=== PATIENT | female | born 1965 | race Caucasian/White ===

== ENCOUNTER 2018-04-29 06:12 | Day surgery (SDC) | payer BC, OTHER ==
[~2018-04-29 06:12] MED LIST: Lactated Ringers 1,000 ML IV SCH
[2018-04-29] MEDS ORDERED: DIPRIVAN 200 MG/20 ML IV ONE (06:13)
[2018-04-29] MEDS ORDERED: Ketamine HCl 50 MG/ML IJ ONE (06:13)
[2018-04-29] MEDS ORDERED: Lactated Ringers 1,000 ML IV ONE (08:13)
[2018-04-29 10:10] VITALS: O2SAT 100
[2018-04-29 10:14] VITALS: BP 132/77; PULSE 51
--- NOTE | 2018-04-29 10:25 | OP ---
SURGERY DATE: 04/29/18 SURGERY TIME: 825 PREOPERATIVE DIAGNOSIS: 1. SCREENING EXAM. POSTOPERATIVE DIAGNOSIS: 1. NORMAL COLON. PROCEDURE: 1. Colonoscopy. SURGEON: Dr. Baez. ANESTHESIA: MAC. Medications given by the Anesthesia Department. BRIEF HISTORY: The patient is a 52 y/o WF presenting for her first screening colonoscopy. She was appraised of the risks of the procedure including the risk of perforation, phlebitis, untoward reaction to medication, bleeding, and missed lesions. The patient verbalized her understanding and desired to have the procedure performed. DESCRIPTION OF PROCEDURE: The patient was given the medications by the Anesthesia Department. She had continuous pulse oximetry, ECG monitoring, intermittent BP monitoring, and end tidal CO2 monitoring during the examination. She was placed in the left lateral decubitus position. A digital rectal examination was performed and revealed normal anal sphincter tone and no masses. The flexible Olympus pediatric colonoscope was used to intubate the rectum. A view of the colon was developed sequentially to the cecum. Upon insertion and withdrawal, including a retroflex view in the rectum, no mucosal lesions were encountered. The scope was removed from the patient who tolerated the procedure well and was sent back to OP recovery in good condition. The prep was noted to be fair to good. The exam was noted to be technically challenging.
== END 2018-04-29 10:05 | disposition home or self-care (01) ==
LOC: SDC 06:12
PROVIDERS: ATTEND Family Medicine
DX: Z12.11 Encounter for screening for malignant neoplasm of colon (principal)
CPT/HCPCS: J2704

== ENCOUNTER 2024-08-18 18:39 | Emergency (ER) | payer BC ==
--- NOTE | 2024-08-18 18:53 | ERPHSYRPT ---
- History of Present Illness Time Seen by Provider: 08/18/24 18:53 Source: patient, family Exam Limitations: no limitations Physician History: This is a 59-year-old white female patient who was tripped up by her daughters dogs prior to arrival. She fell and hit her head on concrete as well as her left elbow and left wrist. She did not lose consciousness. Her tetanus status is not up-to-date. She denies neck pain. She denies chest pain. She denies abdominal pain. She has no other pain complaints of any other extremities. Occurred: just prior to arrival Reason for Fall: tripped (By dogs), fell from standing pos Injuries/Pain Location: head, upper extremity (Left elbow and left wrist) Loss of Consciousness: no loss of consciousness Quality: aching Severity of Pain-Max: mild Severity of Pain-Current: mild Modifying Factors: Improves With: movement Associated Symptoms (Fall): headache (Mild), No seizures, No vomiting, No vision changes Allergies/Adverse Reactions: cetirizine [From Zyrtec] Adverse Reaction (Intermediate, Verified 04/19/18 10:49) fluoxetine [From Prozac] Adverse Reaction (Verified 08/18/24 18:48) Home Medications: Aspirin 81 mg PO DAILY 04/19/18 [History] Calcium Carbonate/Vitamin D3 [Calcium 600-Vit D3 800 Tablet] 1 each PO DAILY 04/19/18 [History] Cyanocobalamin 500 Mcg [Vitamin B-12 500 MCG] 500 mcg PO DAILY 04/19/18 [History] Levothyroxine Sodium 50 Mcg [Synthroid 50 Mcg] 50 mcg PO DAILY 04/19/18 [History] Magnesium 250 mg PO DAILY 04/19/18 [History] Melatonin 5 mg PO HS 04/19/18 [History] Multivitamin [Multivitamins] 1 each PO DAILY 04/19/18 [History] Zonisamide [Zonegran] 200 mg PO BID 04/19/18 [History] Naproxen Sodium 220 mg [Aleve 220 MG] 220 mg PO UD PRN 04/29/18 [History] Travel Risk - International Travel Have you traveled outside of the country in past 3 weeks: No - Emerging Infectious Disease Are you exhibiting symptoms associated with any current EIDs: No - Review of Systems Constitutional: No Symptoms Eyes: No Symptoms Ears, Nose, & Throat: No Symptoms Respiratory: No Symptoms Cardiac: No Symptoms Abdominal/Gastrointestinal: No Symptoms Genitourinary Symptoms: No Symptoms Musculoskeletal: Fall, Injury (Left elbow and left wrist) Skin: Other (Abrasions to forehead) Neurological: No Symptoms Psychological: No Symptoms Endocrine: No Symptoms Hematologic/Lymphatic: No Symptoms Immunological/Allergic: No Symptoms All Other Systems: Reviewed and Negative - Past Medical History Pertinent Past Medical History: Yes Neurological History: Peripheral Neuropathy, Seizures ENT History: No Pertinent History Cardiac History: No Pertinent History Respiratory History: No Pertinent History Endocrine Medical History: Hypothyroidism Musculoskeletal History: Arthritis GI Medical History: GERD History: No Pertinent History Psycho-Social History: Anxiety Female Reproductive Disorders: No Pertinent History Other Medical History: 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 Pt notes previous absence seizures; controlled well with meds. clotting disorder - Past Surgical History Past Surgical History: Yes Neuro Surgical History: No Pertinent History Cardiac: No Pertinent History Respiratory: No Pertinent History Gastrointestinal: No Pertinent History Genitourinary: No Pertinent History Musculoskeletal: Orthopedic Surgery Female Surgical History: Dilation & Curettage Other Surgical History: right knee scope, hx of d and c. - Social History Smoking Status: Never smoker Exposure to second hand smoke: No Drug Use: none - Nursing Vital Signs Nursing Vital Signs: Initial Vital Signs Blood Pressure 166/77 08/18/24 18:48 Pain Scale Pain Intensity 5 - Jessica Coma Score Best Eye Response (Mobile): (4) open spontaneously Best Verbal Response (Mobile): (5) oriented Best Motor Response (Mobile): (6) obeys commands Mobile Total: 15 - Physical Exam General Appearance: no apparent distress, alert, anxiety Head Injury: tenderness (The area of kin abrasion of the forehead) Eye Exam: PERRL/EOMI, eyes nml inspection ENT Exam: airway nml, nml ext.inspection Neck Exam: supple, trachea midline, full range of motion, normal alignment, muscle spasm Respiratory/Chest Exam: normal breath sounds, No chest tenderness, No respiratory distress, No ecchymosis, No crepitus Cardiovascular Exam: normal heart sounds, regular rate/rhythm Gastrointestinal Exam: No tenderness Rectal Exam: not done Back Exam: normal inspection, normal range of motion, No CVA tenderness, No vertebral tenderness Extremity Exam: normal range of motion, pelvis stable, tenderness (Left elbow and left wrist) Neurologic Exam: alert, oriented x 3, cooperative, shop tech II-XII nml as tested, normal mood/affect, nml cerebellar function, nml station & gait, sensation nml Skin Exam: abrasion (Skin of forehead) SpO2 Interpretation: normal O2 Delivery: Room Air - Course Nursing assessment & vital signs reviewed: Yes Ordered Tests: Active Orders 24 hr Category Date Time Status ELBOW (MINIMUM 3 VIEWS) Stat Exams 08/18/24 19:03 Taken HEAD WITHOUT CONTRAST [CT] Stat Exams 08/18/24 19:02 Completed WRIST (MIN 3 VIEWS) Stat Exams 08/18/24 19:03 Taken Medication Summary Discontinued Medications Generic Name Dose Route Start Last Admin Trade Name Freq PRN Reason Stop Dose Admin Bacitracin Zinc Confirm 08/18/24 19:39 Bacitracin Packet 1 Each Pckt Administered 08/18/24 19:40 Dose 1 each .ROUTE .STK-MED ONE Bacitracin Zinc 0.9 each 08/18/24 19:51 08/18/24 19:52 Bacitracin Packet 1 Each Pckt TP 08/18/24 19:52 0.9 each STAT ONE Administration Diphtheria/Tetanus/Acell Pertussis 0.5 ml 08/18/24 19:28 08/18/24 19:52 Tdap --Diph,Pertuss(Acell),Tet Vac/Pf 0.5 Ml Vial IM 08/18/24 19:29 0.5 ml .ONCE ONE Administration Diphtheria/Tetanus/Acell Pertussis Confirm 08/18/24 19:40 Tdap --Diph,Pertuss(Acell),Tet Vac/Pf 0.5 Ml Vial Administered 08/18/24 19:41 Dose 0.5 ml IM .STK-MED ONE - Progress Progress: improved, pain not gone completely, re-examined Progress Note: 08/18/24 19:55 Medical decision making of the assignment of low to moderate complexity of this patient's medical issue today is based on review of the patient's past medical history, review the patient's medication list, reviewed patient drug allergy list, history present illness and physical findings on examination. Workup includes CT scan of the head and x-ray of the left elbow and left wrist. Differential diagnosis includes but is not limited to acute intracranial abnormality, dislocation/fracture left elbow, dislocation/fracture left wrist I interpreted the preliminary report of the patient's left elbow. I do not see an acute dislocation. I do not see a fat pad. I do not see any cortical disruption. I interpreted the preliminary poor the patient's left wrist. I do not see an acute dislocation. I do not see any cortical disruption or fracture. 08/18/24 20:[address] scan of the head without contrast was interpreted by the radiologist and I reviewed the impression. The impression states right frontal subgaleal hematoma. No intracranial hematoma. No depressed skull fracture. Counseled pt/family regarding: diagnosis, need for follow-up, rad results Medical Desision Making - Independent Historian Additional History obtained from: Spouse - Diagnostic Testing Diagnostic test were ordered, analyzed, and reviewed by me: Yes Radiological Interpretation: Interpreted by me, Reviewed by me, Teleradiologist Report - Risk of complications Low Risk: Low risk of morbidity from additional dx testing or treatment - Departure Departure Disposition: Home Clinical Impression: Fall with no significant injury, Skin abrasion Condition: Stable Critical Care Time: No Referrals: ELIO PICKETT NP [Primary Care Provider] - Follow up/PCP as directed Additional Instructions: Drink plenty of fluids. Take your medication as prescribed. If there are no contraindications, use Tylenol and naproxen for pain control. Ice pack to tender areas 3-4 times a day for the next 48 to 72 hours. Keep the in abrasion sites clean daily with soap and water and apply thin layer of antibiotic ointment of choice. Call your primary care provider on 08/21/2024, to make arrangement to be seen in the next 5 to 7 days.
[2024-08-18] MEDS ORDERED: BACIGUENT PACKET ONE (19:39)
[2024-08-18] MEDS ORDERED: Adacel Vial IM ONE (19:40)
[2024-08-18] MEDS: BACIGUENT PACKET TP ONE (19:52)
[2024-08-18] MEDS: Adacel Vial IM ONE (19:52)
--- NOTE | 2024-08-18 20:10 | XRAY ---
CLINICAL HISTORY: Fall COMPARISON: None. TECHNIQUE: An axial non-contrast CT scan of the brain was performed from the skull base to the high parietal region. One of the following dose reduction techniques were utilized for this exam: Automated exposure control, adjustment of the mA and/or kV according to patient size, use of iterative reconstruction. FINDINGS: Brain Parenchyma: Normal attenuation of the cerebral hemispheres, cerebellum, and brainstem. No evidence of acute infarct, hemorrhage, or mass effect. No abnormal areas of hypo- or hyperattenuation. Ventricular System: Ventricles are normal in size and configuration. No evidence of hydrocephalus or ventricular enlargement. Subarachnoid Spaces: Normal sulci and cisterns. No evidence of subarachnoid hemorrhage or extra-axial fluid collections. Cerebellum and Brainstem: Normal size and density. No masses, lesions, or areas of abnormal density. Orbits: Normal appearance of the globes, optic nerves, and extraocular muscles. No evidence of orbital masses or abnormal densities. Sinuses: Changes of chronic maxillary sinusitis note. Mastoid Air Cells: Clear mastoid air cells. No evidence of mastoiditis. Skull and Meninges: Right frontal subgaleal hematoma is noted. No depressed skull fractures are seen. IMPRESSION: 1. Right frontal subgaleal hematoma is noted. 2. No intracranial hematoma or bleeding. 3. No depressed skull fractures. Electronically Signed by: Heidi Sifuentes MD. (08/18/2024 20:06:07 EDT)
[2024-08-18 20:32] VITALS: BP 105/68; PULSE 62; RESP 17; O2SAT 97
--- NOTE | 2024-08-18 22:40 | XRAY ---
Indication: Status post fall. Comparison: None 3 views left wrist obtained. No bony, articular, or soft tissue abnormalities.
--- NOTE | 2024-08-18 22:40 | XRAY ---
Indication: Status post fall. Comparison: None 3 view left elbow demonstrates tiny radial head cortical fracture laterally. No bony, articular, or soft tissue abnormalities. Comment: Fracture not reported by interpreting ER clinician. Telephone report was given to Dr. Delgado at 1035 hrs. on August 18, 2024
== END 2024-08-18 20:37 | disposition home or self-care (01) ==
LOC: ED 18:39
DX: Z04.3 Encounter for examination and observation following other accident (principal); S00.81XA Abrasion of other part of head, initial encounter; W01.0XXA Fall on same level from slipping, tripping and stumbling without subsequent striking against object, initial encounter; M25.532 Pain in left wrist; M25.522 Pain in left elbow; Z79.899 Other long term (current) drug therapy; Z23 Encounter for immunization
CPT/HCPCS: 70450; 73080; 73110; 90471; 90715; 99283; A9270-GY